=== PATIENT | male | born 1990 | race Caucasian/White ===

== ENCOUNTER → 2024-03-29 06:45 | Outpatient (REF) | payer OTHER, SELFPAY | LOC: PAVMRI 06:45 | PROVIDERS: ATTENDING PHYSICIAN Pain Medicine Interventional Pain Medicine | DX: M54.16 Radiculopathy, lumbar region (principal) | CPT/HCPCS: 72148 ==

== ENCOUNTER → 2025-02-10 13:02 | Outpatient (REF) | payer OTHER, SELFPAY | LOC: EMG 13:02 | PROVIDERS: ATTENDING PHYSICIAN Orthopaedic Surgery Hand Surgery; FAMILY PHYSICIAN Internal Medicine | DX: M79.642 Pain in left hand (principal); R20.0 Anesthesia of skin; M62.81 Muscle weakness (generalized) | CPT/HCPCS: 95886; 95909 ==

== ENCOUNTER → 2025-03-08 10:07 | Outpatient (REF) | payer OTHER, SELFPAY | LOC: MRI 3T 10:07 | PROVIDERS: ATTENDING PHYSICIAN Physician Assistant Surgical; FAMILY PHYSICIAN Internal Medicine | DX: M54.16 Radiculopathy, lumbar region (principal); M54.50 Low back pain, unspecified; M47.816 Spondylosis without myelopathy or radiculopathy, lumbar region | CPT/HCPCS: 72148 ==